=== PATIENT | female | born 2000 | race Caucasian/White ===

== ENCOUNTER 2021-12-30 01:01 | Day surgery (SDC) | payer BC, SELFPAY ==
[2021-12-21 12:49] VITALS: BMI 23.3
--- NOTE | 2021-12-29 15:52 | WPDGICN ---
Assessment and Plan Assessment and plan (1) Epigastric pain: Code(s): R10.13 - Epigastric pain Status: Acute Assessment and Plan: EGD with possible biopsy or dilatation or cautery. GI Consult Note Consult date/time: 12/29/21 15:52 HPI: Ivette Holcomb is a 21 year old female Who has been suffering from epigastric and left upper quadrant pain for several weeks. She had been given a prescription for pantoprazole but has not yet started that. She had an ulcer diagnosed when she was in the emergency room 2 years ago. She was treated with medication. An EGD done a few months later was negative. At that time she had biopsies taken for celiac disease also, because she was having loose stools as well. She continues to have generally soft stool I also a great deal of bloating. Review of Systems Review of Systems: All systems reviewed & are unremarkable except as noted in HPI and below PMFSH Past Medical History Medical History Anxiety History of PCOS IBS (irritable bowel syndrome) Stomach ulcer Surgical History Surgical History History of tonsillectomy Family History Family History Father Rheumatoid arthritis Grandparent Ovarian cancer Brain tumor Social History Social History Smoking status: Never smoker Alcohol intake: never Substance use: never Substance use type: does not use Living arrangements: alone Spiritual care concerns: No Meds Home Medications and Allergies Home Medications Medication Instructions Recorded Confirmed Type ascorbate calcium (vitamin C) 500 500 mg PO DAILY 03/22/21 12/30/21 History mg tablet cholecalciferol (vitamin D3) 25 25 mcg PO DAILY 03/22/21 12/30/21 History mcg (1,000 unit) capsule omega-3-dha 120 mg-epa 180 mg-fish 1 cap PO DAILY 03/22/21 12/30/21 History oil-vitamin D3 1,000 unit capsule zinc acetate 25 mg (zinc) capsule 25 mg PO DAILY 03/22/21 12/30/21 History spironolactone 100 mg tablet 150 mg PO DAILY tablet 03/23/21 12/30/21 History ferrous sulfate 325 mg (65 mg 325 mg PO DAILY 10/19/21 12/30/21 History iron) tablet trazodone 50 mg tablet 50 mg PO QHS #90 tablet 10/19/21 12/30/21 Rx pantoprazole 40 mg tablet,delayed 40 mg PO QAM #90 tablet 12/15/21 12/30/21 Rx release Allergies Allergy/AdvReac Type Severity Reaction Status Date / Time No Known Allergies Allergy Verified 12/30/21 12:28
--- NOTE | 2021-12-30 09:05 | WPDANESEPPF ---
Anes - Initial Pre Proc Eval Procedure: Operation Date: 12/30/21 13:45 Proposed Procedures p Esophagogastroduodenoscopy - Vahid Barr MD Date/Time: 12/30/21 09:05 Surgeon: Vahid Barr MD Pre Op Diagnosis: melena, epigastric pain Patient Data Age: 21 Gender: F Height: 1.68 m Weight: 65.7 kg Allergies Allergy/AdvReac Type Severity Reaction Status Date / Time No Known Allergies Allergy Verified 12/30/21 12:28 Home Medications Medication Instructions Recorded Confirmed Type ascorbate calcium (vitamin C) 500 500 mg PO DAILY 03/22/21 12/30/21 History mg tablet cholecalciferol (vitamin D3) 25 25 mcg PO DAILY 03/22/21 12/30/21 History mcg (1,000 unit) capsule omega-3-dha 120 mg-epa 180 mg-fish 1 cap PO DAILY 03/22/21 12/30/21 History oil-vitamin D3 1,000 unit capsule zinc acetate 25 mg (zinc) capsule 25 mg PO DAILY 03/22/21 12/30/21 History spironolactone 100 mg tablet 150 mg PO DAILY tablet 03/23/21 12/30/21 History ferrous sulfate 325 mg (65 mg 325 mg PO DAILY 10/19/21 12/30/21 History iron) tablet trazodone 50 mg tablet 50 mg PO QHS #90 tablet 10/19/21 12/30/21 Rx pantoprazole 40 mg tablet,delayed 40 mg PO QAM #90 tablet 12/15/21 12/30/21 Rx release Patient hx anesthesia problems: none Family hx anesthesia problems: none Results Review: All pre-operative results and documents have been reviewed as part of the pre-operative evaluation. [facility] Past Medical History Medical History Anxiety History of PCOS IBS (irritable bowel syndrome) Stomach ulcer Surgical History Surgical History History of tonsillectomy Family History Family History Father Rheumatoid arthritis Grandparent Ovarian cancer Brain tumor Social History Social History Smoking status: Never smoker Alcohol intake: never Substance use: never Substance use type: does not use Living arrangements: alone Spiritual care concerns: No Anes - Eval Final PreProcedure Day of Procedure 12/30/21 09:05 Patient weight: normal Heart: regular rate and rhythm Lungs: clear to auscultation and normal air movement Airway: Mallampati scale class II Neurological: alert and oriented Last oral intake: >/= 8 hours ASA classification: II Emergent: no Anesthetic plan: proceed Anesthesia type and monitoring: general GIVS Results Review: All pre-operative results and documents have been reviewed as part of the pre-operative evaluation. Informed Consent: The patient's anesthetic plan and its attendant risks and benefits were discussed with the patient/family/POA. Questions were solicited and answers provided to the satisfaction of the patient/family/POA.
[2021-12-30 12:21] VITALS: BP 107/64; PULSE 91; RESP 16; TEMP 35.9; O2SAT 100; BMI 23.5
[2021-12-30] MEDS: LACTATED RINGERS 1,000 ML 150 ML IV CONT (12:41)
[2021-12-30] MEDS: BENZOCAINE (*SP) 60 ML SPRAY CAN (HURRICAINE) 1 SPRAY MUCOUS MEM (13:33)
[2021-12-30 13:45] VITALS: BP 96/63; PULSE 68; RESP 18; O2SAT 100
[2021-12-30 13:55] VITALS: BP 98/55; PULSE 67; RESP 18; O2SAT 100
[2021-12-30 14:05] VITALS: BP 100/61; PULSE 70; RESP 18; O2SAT 100
== END 2021-12-30 14:20 | disposition home or self-care (01) ==
PROVIDERS: PCP Physician Assistant; Visit Provider Internal Medicine Gastroenterology
PROC: 0DJ08ZZ Inspection of Upper Intestinal Tract, Via Natural or Artificial Opening Endoscopic (ICD-10-PCS; CPT 43235; principal; 2021-12-30 13:45)
DX: K21.9 Gastro-esophageal reflux disease without esophagitis (principal); K58.9 Irritable bowel syndrome, unspecified; F41.9 Anxiety disorder, unspecified; Z87.11 Personal history of peptic ulcer disease
CPT/HCPCS: 43239; 87081; J2001; J2704; J7120

== ENCOUNTER 2022-11-16 14:49 | Outpatient (CLI) | payer BC, SELFPAY ==
--- NOTE | ~2022-11-16 | XR_ITS ---
EXAMINATION: XR abdomen/kub 1V DATE: 11/16/2022 15:25 INDICATION: Abdominal distention. TECHNIQUE: A supine view of the abdomen on 3 radiographs was obtained. COMPARISON: CT abdomen and pelvis 03/20/19 FINDINGS: There is gaseous distention of the splenic flexure of the colon. There is loss of the carlita l haustra in the distal descending colon. There is a moderate volume of stool in the colon. There is a surgical clip in the pelvis. There is a phlebolith in right pelvis. IMPRESSION: 1. Gaseous distention of the splenic flexure of the colon and loss of the normal haustra in the dista l descending colon suspicious for colitis and adynamic ileus. Reviewed, dictated and finalized at location [facility]. IMPRESSION: 1. Gaseous distention of the splenic flexure of the colon and loss of the carlita l haustra in the distal descending colon suspicious for colitis and adynamic il eus.
[2022-11-22 10:07] LABS: Gliadin AB, IgG <1.0 U/mL (<15.0); TTG IGA AB <1.0 U/mL (<15.0)
== END 2022-11-16 14:50 | disposition home or self-care (01) ==
LOC: ANHLAB 14:51
PROVIDERS: PCP Emergency Medicine; Visit Provider Nurse Practitioner
DX: R14.0 Abdominal distension (gaseous) (principal); R10.9 Unspecified abdominal pain
CPT/HCPCS: 36415; 74018; 86255; 86364

== ENCOUNTER 2022-11-18 13:14 | Outpatient (CLI) | payer BC, SELFPAY ==
[2022-11-18 13:53] LABS: Hematocrit 43.3 % (37.0-47.0); Hemoglobin 14.6 g/dL (12.0-15.0); Mean Corpuscular HGB Conc 33.7 g/dl (32-36); Mean Platelet Volume 9.4 fl (7.4-10.4); Platelet Count Result 273 k/mm3 (150-375); Red Blood Count 4.42 M/mm3 (4.2-5.4); Red Cell Distribution Width 11.4 % (11.5-14.5); White Blood Count 7.4 K/mm3 (4.5-10.0)
[2022-11-18 14:11] LABS: Alanine Aminotransferase 16 U/L (6-35); Albumin Level 4.8 g/dL (3.5-5.1); Alkaline Phosphatase 65 U/L (38-126); Anion Gap 6 mmol/L (8-16); Aspartate Amino Transferase 23 U/L (14-36); Bilirubin,Total 0.4 mg/dL (0.2-1.3); Blood Urea Nitrogen 19 mg/dL (7-17); CRP 4.7 mg/dL (<1.0); Carbon Dioxide 29 mmol/L (22-30); Chloride 102 mmol/L (98-107); Estimated Glomerular Filt Rate > 60; Glucose 91 mg/dL (65-110); Potassium 4.4 mmol/L (3.4-5.0); Sodium 137 mmol/L (137-145)
[2022-11-18 14:31] LABS: Erythrocyte Sedimentation Rate 23 mm/hr (0-20)
== END 2022-11-18 13:15 | disposition home or self-care (01) ==
PROVIDERS: PCP Emergency Medicine; Visit Provider Nurse Practitioner
DX: R10.9 Unspecified abdominal pain (principal); R14.0 Abdominal distension (gaseous); R93.3 Abnormal findings on diagnostic imaging of other parts of digestive tract; K56.0 Paralytic ileus
CPT/HCPCS: 36415; 80053; 85027; 85652; 86140

== ENCOUNTER 2022-11-19 08:05 | Outpatient (CLI) | payer BC, SELFPAY ==
--- NOTE | ~2022-11-19 | CT_ITS ---
EXAMINATION: CT abdomen pelvis w con DATE: 11/19/2022 08:37 INDICATION: Ileus TECHNIQUE: Computed tomography (CT) of the abdomen and pelvis was performed with 100 CC Omnipaque 350 intravenous contrast. Automated exposure control and iterative reconstruction technique were employe d. Exam dose: 311.61 mGy-cm total exam DLP. COMPARISON: 11/16/2022 abdomen 03/20/2019 CT abdomen pelvis FINDINGS: The lung bases are clear. Normal heart size. No pericardial or pleural effusion. The liver, gallbladder, bile ducts, spleen, pancreas, pancreatic duct, and adrenal glands and kidneys are unremarkable. Normal caliber of the abdominal aorta. No intraperitoneal or retroperitoneal or pelvic mass lesion or adenopathy or ascites. The uterus and adnexal areas and urinary bladder are unremarkable. Chronic small ileocolic area mesenteric lymph nodes, present on 03/20/2019. No CT evidence of appendici tis is noted. There is a prominent amount fecal material in the rectum and colon. No bowel obstructio n, bowel wall thickening, pneumatosis or intraperitoneal free air is detected. Included skeletal structures are unremarkable. IMPRESSION: Nonspecific abdomen Reviewed, dictated and finalized at [facility]. Reviewed, dictated and finalized at location [facility]. IMPRESSION: Nonspecific abdomen
== END 2022-11-19 08:06 | disposition home or self-care (01) ==
PROVIDERS: PCP Emergency Medicine; Visit Provider Nurse Practitioner
DX: K56.0 Paralytic ileus (principal); R10.9 Unspecified abdominal pain; R14.0 Abdominal distension (gaseous); R93.3 Abnormal findings on diagnostic imaging of other parts of digestive tract
CPT/HCPCS: 74177; Q9967

== ENCOUNTER 2022-12-28 00:42 | Day surgery (SDC) | payer BC, SELFPAY ==
[2022-12-13 14:15] VITALS: BMI 22.1
--- NOTE | 2022-12-27 14:58 | P.HP_ITS ---
History of Present Illness History of Present Illness Consent: Risks, benefits, and alternatives have been discussed and questions answered. Patient agrees to proceed with procedure. Chief complaint: abdominal dist abd pain, change in bowel habits Narrative: Ivette Holcomb is a 22 year old female who is undergoing colonoscopy because of a significant change in bowel habits. She has had a great deal of abdominal distension also been troubled by constipation. 1 issue she is most distressed about is the abdominal bloating that gets worse as the day goes on. She does not find herself passing gas more than before or having excessive burping.A recent KUB showed distention of the colon and what appeared to be loss of normal haustral pattern in the descending colon. Subsequently CT scan of the abdomen was done which was unremarkable except for a prominent amount of fecal material. She then began taking MiraLax and Linzess which have helped although make her stools looser. Review of Systems Review of Systems: All systems reviewed & are unremarkable except as noted in HPI and below PMFSH Past Medical History Medical History Abdominal pain Abnormal CT scan, colon Adynamic ileus Anxiety Bloating Elevated C-reactive protein History of PCOS IBS (irritable bowel syndrome) Stomach ulcer Surgical History Surgical History History of tonsillectomy Family History Family History Father Rheumatoid arthritis Grandparent Ovarian cancer Brain tumor Social History Social History Smoking status: Never smoker Alcohol intake: never Substance use: never Substance use type: does not use Living arrangements: alone Occupation/Education: student 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 Spiritual care concerns: No Agree to blood products: Yes Meds Home Medications and Allergies Home Medications Medication Instructions Recorded Confirmed Type spironolactone 100 mg tablet 200 mg PO DAILY 03/28/22 12/13/22 History dicyclomine 10 mg capsule 10 mg PO .every 6 hours prn #60 11/16/22 12/13/22 Rx caps Allergies Allergy/AdvReac Type Severity Reaction Status Date / Time No Known Allergies Allergy Verified 12/28/22 06:27 Exam Const: General: alert Orientation/consciousness: patient oriented x3 Resp: Auscultation: clear to auscultation bilaterally Cardio: Rhythm: regular rhythm GI: GI Palp: Yes Soft to palpation and No Tenderness to palpation present (GI) Neuro: General: patient oriented x3 Assessment and Plan Assessment and plan (1) Change in bowel habits: Code(s): R19.4 - Change in bowel habit Status: Acute Assessment and Plan: Colonoscopy with possible biopsy or polypectomy or cautery or injection of substances.
[2022-12-28 06:28] VITALS: BP 112/51; PULSE 86; RESP 18; TEMP 36.1; O2SAT 100
[2022-12-28] MEDS: LACTATED RINGERS 1,000 ML 150 ML IV CONT (06:36)
--- NOTE | 2022-12-28 07:24 | WPDANESEPPF ---
Anes - Initial Pre Proc Eval Procedure: Operation Date: 12/28/22 07:30 Proposed Procedures p Diagnostic Colonoscopy - Vahid Barr MD Date/Time: 12/28/22 07:24 Surgeon: Vahid Barr MD Pre Op Diagnosis: abdominal dist abd pain, change in bowel habits Patient Data Age: 22 Gender: F Height: 1.7 m Weight: 66.4 kg Last Vital Signs Temp 96.9 F L 12/28/22 06:28 Pulse 86 12/28/22 06:28 Resp 18 12/28/22 06:28 BP 112/51 L 12/28/22 06:28 Pulse Ox 100 12/28/22 06:28 O2 Del Method Room Air 12/28/22 06:28 Allergies Allergy/AdvReac Type Severity Reaction Status Date / Time No Known Allergies Allergy Verified 12/28/22 06:27 Home Medications Medication Instructions Recorded Confirmed Type spironolactone 100 mg tablet 200 mg PO DAILY 03/28/22 12/13/22 History dicyclomine 10 mg capsule 10 mg PO .every 6 hours prn #60 11/16/22 12/13/22 Rx caps Patient hx anesthesia problems: none Family hx anesthesia problems: none Results Review: All pre-operative results and documents have been reviewed as part of the pre-operative evaluation. 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 Informed Consent: The patient's anesthetic plan and its attendant risks and benefits were discussed with the patient/family/POA. Questions were solicited and answers provided to the satisfaction of the patient/family/POA.
[2022-12-28 07:46] VITALS: BP 76/44; PULSE 65; RESP 16; O2SAT 100
[2022-12-28 07:56] VITALS: BP 78/44; PULSE 67; RESP 15; O2SAT 100
[2022-12-28 08:01] VITALS: BP 87/52
[2022-12-28 08:06] VITALS: BP 91/55; PULSE 60; RESP 17; O2SAT 100
== END 2022-12-28 08:14 | disposition home or self-care (01) ==
PROVIDERS: PCP Emergency Medicine; Visit Provider Internal Medicine Gastroenterology
PROC: 0DJD8ZZ Inspection of Lower Intestinal Tract, Via Natural or Artificial Opening Endoscopic (ICD-10-PCS; CPT 45378; principal; 2022-12-28 07:30)
DX: R19.4 Change in bowel habit (principal); R14.0 Abdominal distension (gaseous); F41.9 Anxiety disorder, unspecified; E28.2 Polycystic ovarian syndrome; K58.9 Irritable bowel syndrome, unspecified
CPT/HCPCS: 45378; J2704; J7120

== ENCOUNTER 2023-02-28 15:23 | Emergency (ER) | payer BC, SELFPAY ==
--- NOTE | 2023-02-28 15:28 | ED.FEMALEGU ---
HPI - Female Genitourinary General Chief complaint: Urogenital-Female Stated complaint: back pain, frequent urination, burning during urin Time Seen by Provider: 02/28/23 15:27 Source: patient Mode of arrival: ambulatory Limitations: no limitations History of Present Illness HPI Narrative: Patient is a 22-year-old female who presents with 10 days of intermittent in urinary frequency and burning. Patient also reports intermittent low back pain. States that she has had her menstrual cycle During this 10 days. Patient states the burning is external when her urine touches labia. Patient states she does use pads and may have minor irritation. States she just started new control. Denies any vaginal discharge or concern for STDs. Denies any fever, chills, nausea, vomiting, diarrhea. MD elicited complaint: dysuria Related Data Home Medications Medication Instructions Recorded Confirmed spironolactone 100 mg tablet 200 mg PO DAILY 03/28/22 02/28/23 drospirenone 3 mg-ethinyl 1 tablet PO DAILY 02/28/23 02/28/23 estradiol 0.03 mg tablet (Aimee) Allergies Allergy/AdvReac Type Severity Reaction Status Date / Time No Known Allergies Allergy Verified 02/28/23 16:00 Review of Systems Review of Systems: All systems reviewed & are unremarkable except as noted in HPI and below Constitutional: Constitutional: Denies chills, Denies fever(s), Denies headache(s), Denies malaise and Denies weakness Eyes: Eyes: Denies change in vision, Denies eye discharge and Denies irritation ENT: Denies otalgia, Denies headache(s), Denies nasal congestion, Denies nasal discharge, Denies sinus pain and Denies sore throat Cardiovascular: Cardiovascular: Denies chest pain, Denies edema, Denies palpitations and Denies dyspnea Respiratory: Respiratory: Denies cough and Denies dyspnea Gastrointestinal: Gastrointestinal: Denies abdominal pain, Denies diarrhea, Denies nausea and Denies vomiting Genitourinary: Genitourinary: Denies hematuria, Reports nocturia, Reports dysuria, Denies flank pain and Denies urinary urgency Musculoskeletal: Musculoskeletal: Reports back pain and Denies numbness Integumentary/Breasts: Skin/Breast: Denies pruritus and Denies rash Neurologic: Denies headache(s), Denies numbness and Denies weakness Psychiatric: Psychiatric: Reports no additional psychiatric complaints Endocrine: Endocrine: Denies palpitations PMFSH Past Medical History Medical History Abdominal pain Abnormal CT scan, colon Adynamic ileus Anxiety Bloating Elevated C-reactive protein History of PCOS IBS (irritable bowel syndrome) Stomach ulcer Surgical History Surgical History History of tonsillectomy Family History Family History Father Rheumatoid arthritis Grandparent Ovarian cancer Brain tumor Social History Social History Smoking status: Never smoker Alcohol intake: never Substance use: never Substance use type: does not use Living arrangements: alone Occupation/Education: student 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 There is no relevant family history pertinent to the presenting complaint. Exam Const: General: cooperative, healthy appearing, comfortable, no acute distress and well nourished Nutritional Appearance: well nourished Orientation/consciousness: patient oriented x3 HENMT: Head: normocephalic and atraumatic Ears: external ears normal Face/Nose/Sinus: Normal external nose present, Normal nares present and normal facial exam Face and sinus:
[2023-02-28 15:33] VITALS: BP 124/76; PULSE 86; RESP 16; TEMP 36.4; O2SAT 100
== END 2023-02-28 16:05 | disposition home or self-care (01) ==
PROVIDERS: Emergency Provider Nurse Practitioner Family; PCP Emergency Medicine
DX: R35.0 Frequency of micturition (principal); E28.2 Polycystic ovarian syndrome
CPT/HCPCS: 81003; 81025; 99212; G0463

== ENCOUNTER 2023-03-03 15:10 | Outpatient (CLI) | payer BC, SELFPAY ==
[2023-03-03 18:48] LABS: Basophils Absolute Auto 0.1 K/mm3 (0.0-0.1); Basophils Percent Auto 0.5 % (0.2-1.2); Eosinophils Absolute Auto 0.1 K/mm3 (0-0.3); Eosinophils Percent Auto 1.2 % (0-4.4); Hematocrit 42.3 % (37.0-47.0); Hemoglobin 14.1 g/dL (12.0-15.0); Immature Granulocyte Absolute 0.02 K/mm3 (0.00-0.031); Immature Granulocyte Percent A 0.2 % (0-0.5); Lymphocytes Absolute Auto 1.97 K/mm3 (0.9-3.2); Lymphocytes Percent Auto 20.8 % (18.3-44.2); Mean Corpuscular HGB Conc 33.3 g/dl (32-36); Mean Corpuscular Hemoglobin 32.9 pg (26-34); Mean Corpuscular Volume 98.8 fl (80-100); Monocytes Absolute Auto 0.6 K/mm3 (0.1-0.6); Monocytes Percent Auto 6.1 % (2.6-8.5); Neutrophils Absolute Auto 6.8 K/mm3 (1.3-6.7); Neutrophils Percent Auto 71.2 % (45.5-73.1); Platelet Count Result 326 k/mm3 (150-375); Red Blood Count 4.28 M/mm3 (4.2-5.4); Red Cell Distribution Width 10.9 % (11.5-14.5); White Blood Count 9.5 K/mm3 (4.5-10.0)
[2023-03-03 18:56] LABS: Anion Gap 10 mmol/L (8-16); Blood Urea Nitrogen 25 mg/dL (7-17); Carbon Dioxide 26 mmol/L (22-30); Chloride 99 mmol/L (98-107); Estimated Glomerular Filt Rate > 60; Glucose 89 mg/dL (65-110); Potassium 4.5 mmol/L (3.4-5.0); Sodium 135 mmol/L (137-145)
[2023-03-03 19:08] LABS: Appearance Urine Clear (Clear); Bacteria Urine None Seen /hpf; Bilirubin Urine Negative (Negative); Color Urine Yellow (Yellow); Glucose Urine UA Negative (Negative); Ketones Urine Negative (Negative); Leukocyte Esterase Ur Trace LEU/UL (Negative); Need Manual Microscopic Reviewed; Nitrate Urine Negative (Negative); Non Pathogenic Casts 0-2; Protein Urine Negative (Negative); RBC Urine 0-2 /hpf (0-2); Specific Grav Ur 1.022 (1.001-1.035); Squamous Epithelial Cell Urine Many /hpf (Few); Urobilinogen Urine 0.2 mg/dL (<2.0); WBC Urine 0-5 /hpf; pH Urine 5.5 (5.0-9.0)
[2023-03-03 19:54] LABS: Add Urine Microscopic? YES
== END 2023-03-03 15:11 | disposition home or self-care (01) ==
LOC: ANHGOSHLAB 15:11
PROVIDERS: PCP Emergency Medicine; Visit Provider Emergency Medicine
DX: R80.9 Proteinuria, unspecified (principal); R30.0 Dysuria
CPT/HCPCS: 36415; 80048; 81001; 85025

== ENCOUNTER 2023-04-02 19:18 | Emergency (ER) | payer BC, SELFPAY ==
[2023-04-02 19:28] VITALS: BP 110/67; PULSE 86; RESP 16; O2SAT 100
--- NOTE | 2023-04-02 19:50 | ED.GENADULT ---
HPI - General Adult General Chief complaint: Urogenital-Female Stated complaint: Uti symptoms Source: patient Mode of arrival: ambulatory Limitations: no limitations History of Present Illness HPI narrative: Patient presents for evaluation of what she believes to be a urinary tract infection. She indicates she had similar symptoms about a month ago but there was no evidence of UTI on her urinalysis at that time. She followed up with her primary provider and had a pelvic exam and STI testing. She states that testing was all negative. Approximately 2 days ago she developed some suprapubic pressure and dysuria. Today she noted some a hematuria which concerned her. She has never had hematuria in the past. she denies any fever, chills, nausea, vomiting melena back pain, vaginal bleeding/discharge. She is sexually monogamous with 1 male partner who is asymptomatic. He also had recent STI testing which was negative. Related Data Home Medications Medication Instructions Recorded Confirmed spironolactone 100 mg tablet 200 mg PO DAILY 03/28/22 03/03/23 drospirenone 3 mg-ethinyl 1 tablet PO DAILY 02/28/23 03/03/23 estradiol 0.03 mg tablet (Aimee) Allergies Allergy/AdvReac Type Severity Reaction Status Date / Time No Known Allergies Allergy Verified 03/03/23 11:03 Review of Systems Review of Systems: CONSTITUTIONAL: Denies fever, chills, or sweats. EYES: Denies visual changes, redness, or discharge. ENT: Denies rhinorrhea, congestion, sore throat, or otalgia. CARDIOVASCULAR: Denies chest pain, palpitations, or edema. RESPIRATORY: Denies cough or dyspnea. GASTROINTESTINAL: Denies abdominal pain, nausea, vomiting, or diarrhea. GENITOURINARY: Reports dysuria and hematuria. Reports suprapubic pressure SKIN: Denies rash or itching. MUSCULOSKELETAL: Denies back pain, joint pain, or myalgia. NEUROLOGIC: Denies headache, numbness, dizziness, or weakness. PSYCHIATRIC: Denies anxiety or depression. [facility] Past Medical History Medical History Abdominal pain Abnormal CT scan, colon Adynamic ileus Anxiety Bloating Elevated C-reactive protein History of PCOS IBS (irritable bowel syndrome) Stomach ulcer Surgical History Surgical History History of tonsillectomy Family History Family History Father Rheumatoid arthritis Grandparent Ovarian cancer Brain tumor Social History Social History Smoking status: Never smoker Alcohol intake: never Substance use: never Substance use type: does not use Lack of Transportation: No Lack of Food: Never True Current Housing: I Have Housing Concerned About Future Housing: No Difficulty Paying Gas/Electric Bills: No Difficulty Paying for Meds: No Currently Unemployed: No Education: Bachelor's Degree Difficulty w/ Childcare or Family Care: No Living arrangements: alone Occupation/Education: student 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 HEAD: Normocephalic, atraumatic. EYES: PERRLA and EOMI. ENT: Nares clear, no rhinorrhea or epistaxis. Mucous membranes moist. Oropharynx without tonsillar hypertrophy exudate or other lesions. Bilateral TMs pearly degroot nonbulging NECK: Supple. No adenopathy or masses. No carotid bruits or JVD CHEST: Clear to auscultation. No respiratory distress. No wheezes rales or rhonchi HEART: Regular rate and rhythm. No murmur heard. Normal peripheral pulses. ABDOMEN: Soft, nondistended, normal active bowel sounds. Mild suprapubic pressure without rebound
== END 2023-04-02 19:48 | disposition home or self-care (01) ==
PROVIDERS: Emergency Provider Nurse Practitioner; PCP Emergency Medicine
DX: N30.01 Acute cystitis with hematuria (principal); E28.2 Polycystic ovarian syndrome
CPT/HCPCS: 81003; 87086; 87088; 99213; G0463

== ENCOUNTER 2023-10-20 15:16 | Emergency (ER) | payer BC, SELFPAY ==
[2023-10-20 15:26] VITALS: BP 124/70; PULSE 90; RESP 16; TEMP 36.6; O2SAT 100
--- NOTE | 2023-10-20 15:50 | ED.GENADULT ---
HPI - General Adult General Chief complaint: Urogenital-Female Stated complaint: POSSIBLE YEAST INFECTION Source: patient, RN notes reviewed and old records reviewed Mode of arrival: ambulatory Limitations: no limitations History of Present Illness HPI narrative: 22-year-old female [facility] with complaint of vaginal itching at it discharge with cottage cheese like discharge for 1-2 days. Pt endorses recent travel with change in diet and hot tub use and concerned for yeast infection. Patient denies allergies to any meds. Patient endorses history because otherwise denies past medical history. Patient denies urinary complaints, fever, flank pain. Related Data Home Medications Medication Instructions Recorded Confirmed spironolactone 100 mg tablet 200 mg PO DAILY 03/28/22 10/20/23 drospirenone 3 mg-ethinyl 1 tablet PO DAILY 02/28/23 10/20/23 estradiol 0.03 mg tablet (Aimee) Allergies Allergy/AdvReac Type Severity Reaction Status Date / Time No Known Allergies Allergy Verified 10/20/23 15:22 Review of Systems Review of Systems: All systems reviewed & are unremarkable except as noted in HPI and below Constitutional: Constitutional: Reports no additional constitutional complaints Eyes: Eyes: Reports no additional eye complaints ENT: Reports system reviewed and no additional complaints, except as documented Cardiovascular: Cardiovascular: Reports no additional cardiovascular complaints, Denies chest pain and Denies dyspnea Respiratory: Respiratory: Reports no additional respiratory complaints, Denies cough and Denies dyspnea Genitourinary: Genitourinary: Reports as per HPI, Denies abnormal menses, Denies nocturia, Reports genital pruritis, Denies dysuria, Denies flank pain and Denies urinary incontinence Musculoskeletal: Musculoskeletal: Reports no additional musculoskeletal complaints Neurologic: Reports system reviewed and no additional complaints, except as documented Psychiatric: Psychiatric: Reports no additional psychiatric complaints [facility] Past Medical History Medical History Abdominal pain Abnormal CT scan, colon Adynamic ileus Anxiety Bloating Elevated C-reactive protein History of PCOS IBS (irritable bowel syndrome) Stomach ulcer Surgical History Surgical History History of tonsillectomy Family History Family History Father Rheumatoid arthritis Grandparent Ovarian cancer Brain tumor Social History Social History Smoking status: Never smoker Alcohol intake: never Substance use: never Substance use type: does not use Lack of Transportation: No Lack of Food: Never True Current Housing: I Have Housing Concerned About Future Housing: No Difficulty Paying Gas/Electric Bills: No Difficulty Paying for Meds: No Currently Unemployed: No Education: Bachelor's Degree Difficulty w/ Childcare or Family Care: No Living arrangements: alone Occupation/Education: student 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 There is no relevant family history pertinent to the patient complaint. Exam Const: General: cooperative, healthy appearing, comfortable, no acute distress, alert and well nourished Nutritional Appearance: well nourished Orientation/consciousness: patient oriented x3 Limitations: no limitations HENMT: Head: normal to inspection Ears: external ears normal Face/Nose/Sinus: Normal external nose present, Normal nares present, norm
== END 2023-10-20 16:08 | disposition home or self-care (01) ==
PROVIDERS: Emergency Provider Nurse Practitioner Family; PCP Emergency Medicine
DX: B37.31 Acute candidiasis of vulva and vagina (principal); Z79.899 Other long term (current) drug therapy
CPT/HCPCS: 81003; 99213; G0463

== ENCOUNTER 2024-03-11 12:29 | Emergency (ER) | payer BC, SELFPAY ==
[2024-03-11 12:40] VITALS: BP 114/74; PULSE 69; RESP 14; TEMP 36.4; O2SAT 100
--- NOTE | 2024-03-11 12:51 | ED.FEMALEGU ---
HPI - Female Genitourinary General Chief complaint: Urogenital-Female Stated complaint: Uti Symptoms Source: patient and RN notes reviewed Mode of arrival: ambulatory Limitations: no limitations History of Present Illness HPI Narrative: 23 y/o female who presents with complaints of dysuria and urethral pain frequency and urgency x4 days. She has a history of bladder problems and sees a urologist who has been having her practice pelvic floor muscle exercises. She denies any vaginal itching or discharge, abdominal pain, hematuria, n/v/d/f/c, or flank pain. Denies concern for STD or . Related Data Home Medications Medication Instructions Recorded Confirmed spironolactone 100 mg tablet 200 mg PO DAILY 03/28/22 03/11/24 Allergies Allergy/AdvReac Type Severity Reaction Status Date / Time No Known Allergies Allergy Verified 03/11/24 12:37 Review of Systems Review of Systems: CONSTITUTIONAL: Denies body aches, fever, chills, or sweats. CARDIOVASCULAR: Denies chest pain, palpitations, or edema. RESPIRATORY: Denies cough or dyspnea. GASTROINTESTINAL: Denies abdominal pain, nausea, vomiting, or diarrhea. GENITOURINARY: Reports dysuria, frequency, urgency; Denies hematuria, flank pain SKIN: Denies rash, itching, or wounds. MUSCULOSKELETAL: Denies back pain or myalgia. [facility] Past Medical History Medical History Abdominal pain Abnormal CT scan, colon Adynamic ileus Anxiety Bloating Elevated C-reactive protein History of PCOS IBS (irritable bowel syndrome) Stomach ulcer Surgical History Surgical History History of tonsillectomy Family History Family History Father Rheumatoid arthritis Grandparent Ovarian cancer Brain tumor Social History Social History Smoking status: Never smoker Alcohol intake: never Substance use: never Substance use type: does not use Do You Feel Safe in your Home?: Yes Lack of Transportation: No Lack of Food: Never True Current Housing: I Have Housing Concerned About Future Housing: No Difficulty Paying Gas/Electric Bills: No Difficulty Paying for Meds: No Currently Unemployed: No Education: Bachelor's Degree Difficulty w/ Childcare or Family Care: No Living arrangements: alone Occupation/Education: unemployed Gender identity (if verbalized by the patient): Female Sexual Orientation (if Verbalized by the Patient): Straight or Heterosexual Spiritual care concerns: No Agree to blood products: Yes Comments At time of signature, I have reviewed and agree with nursing past medical, surgical, social and family history unless otherwise noted. Please see nursing chart for further information. There is no relevant family history pertinent to the presenting complaint Exam Narrative: GENERAL: Well-appearing and in no acute distress. HEAD: Normocephalic EYES: EOMI. ENT: Mucous membranes pink and moist. NECK: Normal AROM. Supple. CHEST: No respiratory distress. Clear to auscultation. HEART: Regular rate and rhythm. ABDOMEN: Soft, nontender, nondistended. No CVA tenderness SKIN: Warm, dry, no rash. NEURO: No focal deficits. Alert and oriented x3. Gait steady. PSYCH: Normal affect. No signs of depression or anxiety. Course Course Emergency Course: Patient is aware of diagnosis, understands and agrees to treatment plan. Anticipatory guidance given. Patient agrees to follow-up as directed and is aware of reasons to seek care at the emergency department. Portions of this record may have been created with voice recognition software Level of Care: Express Care Visit Vital Signs Vital signs: Vital Signs Temperature 97.5 F L 03/11/24 12:40 Pulse Rate 69 03/11/24 12:40 Respirat
[2024-03-11 12:54] LABS: EDUAAPPEAR Clear; EDUABILI Negative; EDUABLOOD 2+; EDUACOLOR1 Yellow; EDUAGLUCOSE Negative; EDUAKETONE Negative; EDUALEUKO Trace; EDUANITRATE Negative; EDUAPROTEIN 1+; EDUAUROBILI 0.2
== END 2024-03-11 13:11 | disposition home or self-care (01) ==
PROVIDERS: Emergency Provider Nurse Practitioner Family; PCP Emergency Medicine
DX: N39.0 Urinary tract infection, site not specified (principal); B96.4 Proteus (mirabilis) (morganii) as the cause of diseases classified elsewhere; E28.2 Polycystic ovarian syndrome
CPT/HCPCS: 81003; 87077; 87086; 87088; 87186; 99213; G0463

== ENCOUNTER 2024-11-07 18:17 | Emergency (ER) | payer BC, SELFPAY ==
--- NOTE | 2024-11-07 18:23 | ED_ITS ---
HPI - Female Genitourinary General Chief complaint: Urogenital-Female Stated complaint: UTI SYMPTOMS Time Seen by Provider: 11/07/24 18:20 Source: patient Mode of arrival: ambulatory Limitations: no limitations History of Present Illness HPI Narrative: Ivette is a 23-year-old female patient presenting to the clinic today with complaints of possible UTI. She reports she had burning, frequency, urgency, body aches, and some suprapubic pain that started last night. Has been treated for vulva dermatitis and has been applying a steroid cream to her external vaginal area. Is noticing some white vaginal discharge but states it is not changed since she has seen her last provider. She is concerned that she may have developed bacterial vaginosis or yeast due to applying the steroid cream. Denies any fevers, chills, or back pain. Denies any concern for STIs as she has not had intercourse since she was tested for STIs at her doctor's office. She denies any chance of . Last menstrual period was on October 13. Last bowel movement was today and normal Related Data Home Medications ?Medication ?Instructions ?Recorded ?Confirmed ?Last Taken ?Type spironolactone 100 mg tablet 200 mg PO DAILY 03/28/22 10/15/24 12/27/22 History norgestimate-ethinyl estradiol tablet PO 10/15/24 10/15/24 Unknown History 0.18 mg/0.215mg/0.25mg-35 mcg(28)tablet (Tri-Sprintec (28)) Allergies Allergy/AdvReac Type Severity Reaction Status Date / Time No Known Allergies Allergy Verified 10/15/24 13:43 Review of Systems Review of Systems: Pertinent positives per HPI. Patient denies any fever, chills, rash, headache, visual changes, dizziness, cough, runny nose, sore throat, shortness of breath, chest pain, palpitations, nausea, vomiting, diarrhea, constipation. [facility] Past Medical History Medical History Elevated C-reactive protein Adynamic ileus Abnormal CT scan, colon Abdominal pain Bloating Stomach ulcer History of PCOS IBS (irritable bowel syndrome) Anxiety Surgical History Surgical History History of tonsillectomy Family History Family History Father Rheumatoid arthritis Grandparent Ovarian cancer Brain tumor Social History Social History Smoking status: Never smoker Alcohol intake: never Substance use: never Substance use type: does not use Do You Feel Safe in your Home?: Yes Lack of Transportation: No Lack of Food: Never True Current Housing: I Have Housing Concerned About Future Housing: No Difficulty Paying Gas/Electric Bills: No Difficulty Paying for Meds: No Currently Unemployed: YES Education: Bachelor's Degree Difficulty w/ Childcare or Family Care: No Living arrangements: alone Occupation/Education: unemployed Gender identity (if verbalized by the patient): Female Sexual Orientation (if Verbalized by the Patient): Straight or Heterosexual Spiritual care concerns: No Agree to blood products: Yes Comments At the time of my signature, I reviewed and agree with the nursing past medical, surgical, social, and family history. There is no relevant family history pertinent to the patient complaint. Exam Narrative: General: Well-developed, well nourished, in no apparent distress. Head: Normocephalic, atraumatic. Cardio: Regular rate and rhythm, s1 and s2 normal, no murmur appreciated. Resp: Clear to auscultation bilaterally, no rhonchi, rales, wheezing or rubs. Abdomen: Soft, pliable, bowel sounds present in all quadrants, suprapubic tender to palpation, no organomegly, no CVAT tenderness : Pelvic exam performed with (Beulah OROURKE) at bedside. Verbal consent obtained from patient. Normal external female genitalia without lesions or masses, Urinary meatus: patent without discharge, Vagina: No lesions or masses, white thick vaginal discharge in the pelvic vault Cervix: pink without mass, discharge, or tenderness. Adnexa: without palpable mass or tenderness. Course Course Emergency Course: Portions of this record may have been created with voice recognition software. Level of Care: Express Care Visit Vital Signs Vital signs: Vital Signs Temperature 36.4 C L 11/07/24 18:27 Pulse Rate 67 11/07/24 18:27 Respiratory Rate 16 11/07/24 18: Blood Pressure 106/82 11/07/24 18:27 Pulse Oximetry 100 11/07/24 18:27 Temperature 36.4 C L 11/07/24 18: Pulse Rate 67 11/07/24 18: Respiratory Rate 16 11/07/24 18: Blood Pressure 106/82 11/07/24 18:27 Pulse Oximetry 100 11/07/24 18:27 Vital signs reviewed MDM - Female Genitourinary MDM Narrative Medical decision making narrative: At the time of visit patient is resting comfortably on the exam table. Patient appears to be nontoxic. Labs: Urinalysis dip negative for any sign of infection, blood, or protein. Genital culture and bacterial vaginosis swabs sent to the lab. We will send urine for culture. Plan: I suspect patient has vaginal discharge with UTI symptoms. Urine culture and genital culture and bacterial vaginosis swabs sent to the lab. Will wait for results prior to treatment. Recommend use of azo for UTI symptoms. Supportive measures were discussed with the patient and they voiced understanding discharge instructions and agrees to treatment plan. Return precautions reviewed Differential Diagnosis Differential diagnosis: Likely urinary tract infection, bacterial vaginosis, trichomoniasis, cervicitis, vaginitis and cystitis Lab Data Labs: Lab Results 11/07/24 Range/Units 18:32 POC Urine Color Yellow POC Urine Clarity Clear POC Urine pH 5.5 POC Ur Specif [place] 1.025 POC Urine Protein Negative (Negative) POC Ur Glucose (UA) Negative (Negative) POC Urine Ketones Negative (Negative) POC Urine Blood Negative (Negative) POC Urine Nitrite Negative (Negative) POC Urine Bilirubin Negative (Negative) POC Urine Urobilinogen 0.2 POC U Leukocyte Esteras Negative (Negative) Discharge Plan Discharge Clinical Impression: Symptoms of urinary tract infection, Vaginal discharge Patient Disposition: Home, Self-Care Condition: Stable Instructions: Antibiotic Form, Dysuria (ED), Vaginal Discharge (ED), Urinary Urgency and Frequency (DC) Additional Instructions: Urinalysis is negative for any sign of infection. We will send urine for culture May take azo for symptoms Bacterial vaginosis and genital culture was sent to the lab No sexual intercourse until you receive results and any positive results are t reated. Increase fluids and stay well hydrated Wipe front to back. May use wet wipes. Avoid tub baths If sexually active- pee before and after intercourse. Wear cotton panties Avoid tight clothing up against the genitals Follow up with your PCP in 1 week if symptoms persist. Patient Language: [place] Prescriptions: No Action spironolactone 100 mg tablet 200 mg PO DAILY norgestimate-ethinyl estradiol [Tri-Sprintec (28)] 0.18/0.215/0.25 mg-35 mcg (28) tablet PO triamcinolone acetonide 0.1 % ointment 1 applic topical BID Qty: 30 0RF fluconazole 150 mg tablet 150 mg PO Q72H Qty: 2 0RF Follow-up/Referrals: Laura,Nena Doherty, [employer] [Primary Care Provider] - Time of Disposition: 18:48 Quality NIHSS Nursing Documentation ED NIHSS nursing documentation: reviewed/agree
[2024-11-07 18:27] VITALS: BP 106/82; PULSE 67; RESP 16; TEMP 36.4; O2SAT 100
[2024-11-07 18:34] LABS: EDUAAPPEAR Clear; EDUABILI Negative (Negative); EDUABLOOD Negative (Negative); EDUACOLOR1 Yellow; EDUAGLUCOSE Negative (Negative); EDUAKETONE Negative (Negative); EDUALEUKO Negative (Negative); EDUANITRATE Negative (Negative); EDUAPH 5.5; EDUAPROTEIN Negative (Negative); EDUASPGRAVITY 1.025; EDUAUROBILI 0.2
--- NOTE | 2024-11-07 18:43 | PC.NURSE ---
1843 pelvic by provider done at this time.
[2024-11-11 16:57] LABS: Bacterial Vaginosis NEGATIVE (NEGATIVE)
== END 2024-11-07 18:52 | disposition home or self-care (01) ==
PROVIDERS: Emergency Provider Nurse Practitioner Family; PCP Nurse Practitioner
DX: R30.0 Dysuria (principal); R35.0 Frequency of micturition; R39.15 Urgency of urination; N89.8 Other specified noninflammatory disorders of vagina; E28.2 Polycystic ovarian syndrome; K58.9 Irritable bowel syndrome, unspecified
CPT/HCPCS: 81003; 81513; 87070; 87086; 99213; G0463